=== PATIENT | female | born 1935 ===

== ENCOUNTER 2021-07-10 16:54 | Emergency (ER) | payer MEDICARE, BC ==
[~2021-07-10] VITALS: Ht 167.6 cm; Wt 63.5 kg
[2021-07-10] MEDS ORDERED: TDAP DIPH,PERTUSS,TET VAC/PF 0.5 ML DISP.SYRIN IM ONE ×2 (17:15→17:32)
[2021-07-10] MEDS ORDERED: ACETAMINOPHEN ES 500 MG TABLET PO ONE (17:15)
[2021-07-10] MEDS ORDERED: ACETAMINOPHEN ES 500 MG TABLET ONE (17:32)
[2021-07-10] MEDS ORDERED: CEPH250C PO (18:37)
[2021-07-10] MEDS ORDERED: ACET-2605 PO (19:37)
[2021-07-10 19:49] VITALS: BP 120/72
--- NOTE | 2021-07-10 19:49 | NUR ---
Patient discharged to home in stable condition. Written and verbal after care instructions given. Patient verbalizes understanding of instructions. Stressed follow up or return to ER for worsening s/s.
== END 2021-07-10 19:50 | disposition home or self-care (01) ==
LOC: ER 16:59
DX: S01.81XA Laceration without foreign body of other part of head, initial encounter (principal); S00.83XA Contusion of other part of head, initial encounter; W01.0XXA Fall on same level from slipping, tripping and stumbling without subsequent striking against object, initial encounter; Y92.019 Unspecified place in single-family (private) house as the place of occurrence of the external cause
CPT/HCPCS: 70450; 70480; 72125; 90715; A4217; A9150